=== PATIENT | female | born 1975 | race Caucasian/White ===

== ENCOUNTER 2017-08-25 09:52 | Inpatient (IN) | payer OTHER ==
[~2017-08-25 09:52] MED LIST: ACETAMINOPHEN 1000 MG/100 ML IVPB; CEFAZOLIN 1 GM INJ
[2017-08-25] MEDS ORDERED: FENTAnyl 50 MCG/ML VIAL (13:02)
[2017-08-25] MEDS ORDERED: DEXAMETHASONE 4 MG/ML 1 ML INJ (13:06)
[2017-08-25] MEDS ORDERED: ROCURONIUM 50 MG INJ (13:06)
[2017-08-25] MEDS ORDERED: PROPOFOL 20 ML (13:06)
[2017-08-25] MEDS ORDERED: SUCCINYLCHOLINE CHLORIDE 100 MG/5 ML SYG IV (13:06)
[2017-08-25] MEDS ORDERED: LIDOCAINE 2% (SDV) 5 ML INJ (13:06)
[2017-08-25] MEDS ORDERED: METOCLOPRAMIDE 10 MG INJ (13:08)
[2017-08-25] MEDS ORDERED: ONDANSETRON 4 MG INJ (13:08)
[2017-08-25] MEDS ORDERED: MIDAZOLAM 1 MG/ML 2 ML INJ (13:21)
[2017-08-25] MEDS ORDERED: LABETALOL HCL 20MG INJ (13:27)
[2017-08-25] MEDS ORDERED: ACETAMINOPHEN 325 MG TAB PO (14:00)
[2017-08-25] MEDS ORDERED: AL HYDROX/MG HYDROX/SIMETH 30 ML CUP PO (14:00)
[2017-08-25] MEDS ORDERED: CEPASTAT LOZENGE MT (14:00)
[2017-08-25] MEDS ORDERED: BISACODYL 10 MG SUPP PR (14:00)
[2017-08-25] MEDS ORDERED: HYDROmorphONE 0.5 MG/0.5 ML SYG IV (14:00)
[2017-08-25] MEDS ORDERED: NALOXONE (0.4 MG/ML) INJ IV (14:00)
[2017-08-25] MEDS ORDERED: DIPHENHYDRAMINE 50 MG INJ IV ×2 (14:00→18:30)
[2017-08-25] MEDS ORDERED: PHENYLephrine (100 MCG/ML) 5ML SYG (15:44)
[2017-08-25] MEDS ORDERED: HYDROmorphONE 2 MG/ML SYG (16:14)
[2017-08-25] MEDS: SURGIFOAM POWDER 1 GM KIT (16:57)
[2017-08-25] MEDS: CEFAZOLIN 1 GM INJ (16:58)
[2017-08-25] MEDS: GELATIN SIZE 100 SPONGE (17:00)
[2017-08-25] MEDS: LIDOCAINE 1%/EPI 30 ML INJ (17:01)
[2017-08-25] MEDS: THROMBIN 5000 UNIT VIAL (17:01)
[2017-08-25] MEDS: HEPARIN 1000 UNITS/ML 10 ML INJ ×2 (17:02)
[2017-08-25] MEDS ORDERED: SUGAMMADEX SODIUM 200 MG/2 ML VIAL IV (17:38)
[2017-08-25] MEDS: MEPERIDINE 25 MG INJ IV (18:28)
[2017-08-25] MEDS ORDERED: FENTAnyl 50 MCG/ML VIAL IV (18:30)
[2017-08-25] MEDS ORDERED: METOCLOPRAMIDE 10 MG INJ IV (18:30)
[2017-08-25] MEDS ORDERED: hydrALAzine 20 MG INJ IV (18:30)
[2017-08-25] MEDS ORDERED: LABETALOL HCL 20MG INJ IV (18:30)
[2017-08-25] MEDS ORDERED: IPRATROPIUM (NEB) 0.5 MG/2.5 ML AMP HHN (18:30)
[2017-08-25] MEDS ORDERED: HALOPERIDOL 5 MG INJ IV (18:30)
[2017-08-25] MEDS ORDERED: HYDROmorphONE (0.2 MG/ML) 10ML SYG IV ×3 (18:30)
[2017-08-25] MEDS: HYDROmorphONE 0.2 MG/ML PCA IV (18:35)
[2017-08-25] MEDS: FENTAnyl 50 MCG/ML VIAL IV ×2 (18:55→23:37)
[2017-08-25] MEDS: DOCUSATE SODIUM 100 MG CAP PO (21:00)
[2017-08-25] MEDS: ONDANSETRON 4 MG INJ IV (22:31)
[2017-08-25] MEDS: LACTATED RINGER'S 1,000 ML IV* (23:28)
[2017-08-25] MEDS: CEFAZOLIN 2 GM/50 ML (PMX) 50 ML IVPB (23:29)
[2017-08-25] MEDS: D5W-0.45 NACL + KCL 20 MEQ 1,000 ML IV ×2 (23:30→23:38)
[2017-08-25] MEDS: CEFAZOLIN 1 GM/50 ML (PMX) 50 ML IVPB ×2 (23:38→23:40)
[2017-08-26 05:12] LABS: ADD MAN DIFF? NO
[2017-08-26 05:13] LABS: WHITE BLOOD COUNT 13.7 10^3/ul (4.8-10.8)
[2017-08-26 05:13] LABS: BASOPHILS % 0.1 % (0.0-2.0); HEMATOCRIT 33.2 % (37.0-47.0); HEMOGLOBIN 10.8 g/dl (12.0-16.0); LYMPHOCYTES # 0.7 10^3/ul (0.8-2.9); LYMPHOCYTES % 5.3 % (15.0-51.0); MEAN CORPUSCULAR HEMOGLOBIN 26.9 pg (29.0-33.0); MEAN CORPUSCULAR HGB CONC 32.5 g/dl (32.0-37.0); MEAN CORPUSCULAR VOLUME 82.6 fl (82.0-101.0); MEAN PLATELET VOLUME 11.5 fl (7.4-10.4); MONOCYTE # 0.8 10^3/ul (0.3-0.9); MONOCYTES % 5.9 % (0.0-11.0); NEUTROPHIL # 12.1 10^3/ul (1.6-7.5); NEUTROPHILS % 88.3 % (39.0-77.0); PLATELET COUNT 211 10^3/UL (140-415); RED BLOOD COUNT 4.02 10^6/ul (4.20-5.40)
[2017-08-26 05:33] LABS: ANION GAP 14 (8-16); BLOOD UREA NITROGEN 6 mg/dl (7-20); CALCIUM 7.5 mg/dl (8.4-10.2); CARBON DIOXIDE 20 mmol/L (21-31); CHLORIDE 109 mmol/L (97-110); CREATININE 0.55 mg/dl (0.44-1.00); GLUCOSE 174 mg/dl (70-220); MAGNESIUM 1.7 mg/dl (1.7-2.5); POTASSIUM 4.3 mmol/L (3.5-5.1); SODIUM 139 mmol/L (135-144)
[2017-08-26] MEDS: CEFAZOLIN 1 GM/50 ML (PMX) 50 ML IVPB (06:06)
[2017-08-26] MEDS: DOCUSATE SODIUM 100 MG CAP PO ×3 (08:43→23:32)
[2017-08-26] MEDS: D5W-0.45 NACL + KCL 20 MEQ 1,000 ML IV ×3 (08:44→23:33)
[2017-08-26] MEDS: HYDROmorphONE 0.2 MG/ML PCA IV (11:52)
[2017-08-26] MEDS: ONDANSETRON 4 MG INJ IV ×2 (12:49→20:18)
[2017-08-26] MEDS ORDERED: SOD CHLORIDE 0.9% 1,000 ML IV (13:00)
[2017-08-27 05:00] LABS: ADD MAN DIFF? NO
[2017-08-27 05:05] LABS: WHITE BLOOD COUNT 10.3 10^3/ul (4.8-10.8)
[2017-08-27 05:05] LABS: BASOPHILS % 0.4 % (0.0-2.0); EOSINOPHILS # 0.1 10^3/ul (0.0-0.5); EOSINOPHILS % 0.6 % (0.0-7.0); HEMATOCRIT 31.3 % (37.0-47.0); HEMOGLOBIN 10.3 g/dl (12.0-16.0); LYMPHOCYTES # 1.7 10^3/ul (0.8-2.9); LYMPHOCYTES % 16.4 % (15.0-51.0); MEAN CORPUSCULAR HEMOGLOBIN 27.3 pg (29.0-33.0); MEAN CORPUSCULAR HGB CONC 32.9 g/dl (32.0-37.0); MEAN PLATELET VOLUME 11.4 fl (7.4-10.4); MONOCYTE # 0.9 10^3/ul (0.3-0.9); MONOCYTES % 8.4 % (0.0-11.0); NEUTROPHIL # 7.7 10^3/ul (1.6-7.5); PLATELET COUNT 181 10^3/UL (140-415); RED BLOOD COUNT 3.77 10^6/ul (4.20-5.40); RED CELL DISTRIBUTION WIDTH 13.2 % (11.5-14.5)
[2017-08-27 05:29] LABS: ANION GAP 10 (8-16); BLOOD UREA NITROGEN 2 mg/dl (7-20); CALCIUM 7.6 mg/dl (8.4-10.2); CARBON DIOXIDE 26 mmol/L (21-31); CHLORIDE 107 mmol/L (97-110); CREATININE 0.56 mg/dl (0.44-1.00); GLUCOSE 114 mg/dl (70-220); MAGNESIUM 1.8 mg/dl (1.7-2.5); POTASSIUM 3.2 mmol/L (3.5-5.1); SODIUM 140 mmol/L (135-144)
[2017-08-27] MEDS: DOCUSATE SODIUM 100 MG CAP PO ×2 (08:44→19:46)
[2017-08-27] MEDS: CYCLOBENZAPRINE 10 MG TAB PO (08:44)
[2017-08-27] MEDS ORDERED: HYDROCODONE/APAP (10/325) TAB PO ×3 (09:00→10:00)
[2017-08-27] MEDS: D5W-0.45 NACL + KCL 20 MEQ 1,000 ML IV ×2 (09:30→19:30)
[2017-08-27] MEDS: HYDROCODONE/APAP (10/325) TAB PO ×3 (09:39→19:46)
[2017-08-27] MEDS: ONDANSETRON 4 MG INJ IV (09:43)
[2017-08-27] MEDS ORDERED: SUMATRIPTAN 50 MG TAB PO (12:00)
[2017-08-27] MEDS: POTASSIUM CHLORIDE (SR) 20 MEQ TAB PO (12:18)
[2017-08-28] MEDS: HYDROCODONE/APAP (10/325) TAB PO (00:19)
[2017-08-28 05:11] LABS: ADD MAN DIFF? NO
[2017-08-28] MEDS: D5W-0.45 NACL + KCL 20 MEQ 1,000 ML IV (05:14)
[2017-08-28 05:15] LABS: WHITE BLOOD COUNT 7.5 10^3/ul (4.8-10.8)
[2017-08-28 05:15] LABS: BASOPHILS % 0.5 % (0.0-2.0); EOSINOPHILS # 0.3 10^3/ul (0.0-0.5); EOSINOPHILS % 4.3 % (0.0-7.0); HEMOGLOBIN 10.4 g/dl (12.0-16.0); LYMPHOCYTES # 1.9 10^3/ul (0.8-2.9); LYMPHOCYTES % 25.3 % (15.0-51.0); MEAN CORPUSCULAR HEMOGLOBIN 26.9 pg (29.0-33.0); MEAN CORPUSCULAR HGB CONC 32.5 g/dl (32.0-37.0); MEAN CORPUSCULAR VOLUME 82.9 fl (82.0-101.0); MEAN PLATELET VOLUME 11.1 fl (7.4-10.4); MONOCYTE # 0.8 10^3/ul (0.3-0.9); MONOCYTES % 10.7 % (0.0-11.0); NEUTROPHIL # 4.4 10^3/ul (1.6-7.5); NEUTROPHILS % 59.1 % (39.0-77.0); PLATELET COUNT 196 10^3/UL (140-415); RED BLOOD COUNT 3.86 10^6/ul (4.20-5.40); RED CELL DISTRIBUTION WIDTH 12.9 % (11.5-14.5)
[2017-08-28 05:35] LABS: ANION GAP 13 (8-16); BLOOD UREA NITROGEN 4 mg/dl (7-20); CALCIUM 8.2 mg/dl (8.4-10.2); CARBON DIOXIDE 28 mmol/L (21-31); CHLORIDE 104 mmol/L (97-110); CREATININE 0.53 mg/dl (0.44-1.00); GLUCOSE 97 mg/dl (70-220); MAGNESIUM 1.9 mg/dl (1.7-2.5); POTASSIUM 3.5 mmol/L (3.5-5.1); SODIUM 141 mmol/L (135-144)
[2017-08-28] MEDS: DOCUSATE SODIUM 100 MG CAP PO (07:50)
[2017-08-28] MEDS: POTASSIUM CHLORIDE (SR) 20 MEQ TAB PO (10:30)
[2017-08-29] MEDS ORDERED: INFLUENZA VIRUS VACCINE 0.5 ML (DISPENSING) IM* (09:00)
== END 2017-08-28 11:00 | disposition home or self-care (01) | DRG 454 ==
LOC: REC 09:52 → MS1 23:00
PROC: 0SG30A0 Fusion of Lumbosacral Joint with Interbody Fusion Device, Anterior Approach, Anterior Column, Open Approach (ICD-10-PCS; principal; 2017-08-25 12:30)
PROC: 0SG3071 Fusion of Lumbosacral Joint with Autologous Tissue Substitute, Posterior Approach, Posterior Column, Open Approach (ICD-10-PCS; 2017-08-25 12:30)
PROC: 0ST40ZZ Resection of Lumbosacral Disc, Open Approach (ICD-10-PCS; 2017-08-25 12:30)
PROC: 07DR3ZZ Extraction of Iliac Bone Marrow, Percutaneous Approach (ICD-10-PCS; 2017-08-25 12:30)
PROC: 4A11X4G Monitoring of Peripheral Nervous Electrical Activity, Intraoperative, External Approach (ICD-10-PCS; 2017-08-25 12:30)
DX: M51.17 Intervertebral disc disorders with radiculopathy, lumbosacral region (principal); M51.06 Intervertebral disc disorders with myelopathy, lumbar region; G43.909 Migraine, unspecified, not intractable, without status migrainosus; M48.07 Spinal stenosis, lumbosacral region; Z87.891 Personal history of nicotine dependence
CPT/HCPCS: 72114; 80048; 83735; 85025; 86850; 86900; 86901; 86999; 87086; 93005; 97116; 97161; 97530